=== PATIENT | female | born 1985 | race American Indian/Alaskan Native ===

== ENCOUNTER 2022-01-30 14:59 | Emergency (ER) | payer BC ==
--- NOTE | 2022-01-30 15:56 | Emergency Department Report ---
Abscess Boil HPI - HPI Stated Complaint: BOILS UNDER ARM Time Seen by Provider: 01/30/22 15:52 Duration: >1 Week Location: Other Severity: Mild History: Yes Pain, Yes Previous History, No Fever, No Purulent Drainage, No Numbness, No Foreign Body, No Insect Bite HPI: Ms. montano is a 36-year-old that comes to the ER with bilateral hydradenitis. This is acute on chronic. She did not understand that she needed to see general surgery for definitive care. She has no fever or chills. Home Medications: Previous Rx's Medication Instructions Recorded Last Taken Type cephALEXin [Keflex] 500 mg PO Q12HR #20 cap 01/30/22 Unknown Rx ED Review of Systems ROS: Stated complaint: BOILS UNDER ARM Other details as noted in HPI Comment: All other systems reviewed and negative ED Past Medical Hx - Past Medical History Previous Medical History?: No - Surgical History Past Surgical History?: No - Family History Family history: no significant - Social History Smoking Status: Never Smoker Substance Use Type: None - Medications Home Medications: Home Medications Medication Instructions Recorded Confirmed Last Taken Type cephALEXin [Keflex] 500 mg PO Q12HR #20 cap 01/30/22 Unknown Rx ED Abscess Boil Physical Exam - Exam General: Vital signs noted. No distress. Alert and acting appropriately. Exam: Yes Normal Neurologic Exam, Yes Normal Circulation, No Tenderness, No Fluctuance, No Surrounding Cellulites/Erythema, No Lymphangitis, No Crepitation, No Heart Murmur Critical care attestation.: If time is entered above; I have spent that time in minutes in the direct care of this critically ill patient, excluding procedure time. ED Medical Decision Making - Medical Decision Making vs normal as documented by RN Patient educated on hydradenitis care. Patient being discharged home with discharge plan of care including diet, acti vity, medications and follow-up. She verbalizes understanding of plan of care. Vital Signs 01/30/22 16:20 Temperature 98.9 F Pulse Rate 64 Respiratory 14 Rate Blood Pressure 128/72 [Right] O2 Sat by Pulse 98 Oximetry - Differential Diagnosis HS ED Disposition Clinical Impression: Hidradenitis Disposition: 01 HOME / SELF CARE / HOMELESS Is pt being admited?: No Does the pt Need Aspirin: No Condition: Stable Instructions: Hidradenitis Suppurativa Additional Instructions: motrin or tylenol for pain med as ordered today until gone warm soaks in epsom salts soaks follow up with gen surg referral below Prescriptions: cephALEXin [Keflex] 500 mg PO Q12HR #20 cap Referrals: LEXX SANTIAGO MD [Primary Care Provider] - 3-5 Days REID HO MD [Staff Physician] - 3-5 Days Time of Disposition: 15:55
[2022-01-30 16:21] VITALS: BP 128/72
== END 2022-01-30 17:00 | disposition home or self-care (01) ==
LOC: ED 14:59
DX: L73.2 Hidradenitis suppurativa (principal)
CPT/HCPCS: 99281